=== PATIENT | female | born 2000 | race African-American/Black ===

== ENCOUNTER 2022-06-19 14:19 | Outpatient (CLI) | payer OTHER, SELFPAY ==
[2022-06-19 15:48] LABS: Hepatitis B Surface Antigen Negative (Negative)
[2022-06-19 15:58] LABS: HIV 1/2 Ab P24 Ag Result Negative (Negative)
[2022-06-19 16:05] LABS: Hepatitis C Virus Antibody Negative (Negative)
[2022-06-20 10:06] LABS: Rapid Plasma Reagin Non-Reactive (NonReactive)
== END 2022-06-19 14:20 | disposition home or self-care (01) ==
LOC: ANHLAB 14:22
PROVIDERS: Visit Provider Obstetrics & Gynecology
DX: Z20.2 Contact with and (suspected) exposure to infections with a predominantly sexual mode of transmission (principal)
CPT/HCPCS: 36415; 86592; 86703; 86803; 87340; G0432